=== PATIENT | male | born 1965 | race Caucasian/White ===

== ENCOUNTER → 2017-05-08 | Outpatient (CLI) | payer BC ==
[~2017-05-08] MED LIST: NO MEDS
--- NOTE | 2017-05-08 11:37 | DIAGNOSTIC IMAGING REPORT ---
LEFT KNEE 4 OR MORE CLINICAL HISTORY: Left knee pain COMPARISON STUDY: Left knee MRI 10/26/2009. Left knee 10/24/2009. FINDINGS: No acute fracture or dislocation. Mild cartilage space narrowing and subchondral sclerosis within the medial compartment of the left knee. Suspect a trace knee effusion. Increase in size in the 6 mm intra-articular loose body seen posteriorly within the joint space. There is a 5 subchondral lucency within the lateral femoral condyle with surrounding sclerosis. This may represent a small osteochondral defect. IMPRESSION: 1. A 5 mm subchondral lucency within the lateral femoral condyle with surrounding sclerosis. This is concerning for an osteochondral defect. 2. A 6 mm intra-articular loose body seen posteriorly within the joint space. This may be due to to the osteochondral defect. 3. Mild osteoarthritis within the medial compartment of the left knee. 4. Trace left knee effusion. Electronically signed by: Edmond Pemberton M.D. 05/08/2017 11:35 AM Dictated Date/Time: 05/08/2017 11:32 AM
== END | disposition home or self-care (01) ==
LOC: C.RDSM 10:58
PROVIDERS: ATTEND Physician Assistant
DX: M25.562 Pain in left knee (principal); M23.42 Loose body in knee, left knee; R93.6 Abnormal findings on diagnostic imaging of limbs